=== PATIENT | female | born 1975 ===

== ENCOUNTER 2019-11-19 17:56 | Inpatient (IN) ==
[2019-11-19] MEDS ORDERED: Naloxone 0.4 MG/ML INJ IVP PRN (21:58)
[2019-11-19] MEDS ORDERED: Insulin LISPRO 300 UNITS/3 ML VIAL SQ PRN (21:59)
[2019-11-19] MEDS ORDERED: D5% in 0.45% NACL w KCl 20 MEQ/1,000 ML MLS IVC PRN (21:59)
[2019-11-19] MEDS ORDERED: D5% in 0.45% NACL 1,000 ML IVC PRN (21:59)
[2019-11-19] MEDS ORDERED: *HR* Dextrose 50 % in Water (Vial) 50 ML VIAL IVP PRN (21:59)
[2019-11-19] MEDS ORDERED: 0.45 % Sodium Chloride w/KCl 20 MEQ/1,000 ML MLS IVC SCH (22:00)
[2019-11-19] MEDS ORDERED: Insulin Human Regular 100 UNIT in 0.9 % Sodium Chloride 100 ML IVC SCH (22:00)
[2019-11-19] MEDS ORDERED: 0.9 % Sodium Chloride 1,000 ML IVC SCH (22:00)
[2019-11-19] MEDS ORDERED: Potassium Chloride Elixir 20 MEQ/15 ML UDC PO ONE (22:37)
[2019-11-19] MEDS ORDERED: Vancomycin 1,750 MG in 0.9 % Sodium Chloride 250 ML IVPB SCH (23:00)
[2019-11-19 23:04] LABS: Basophils % 0.2 %; Eosinophils % 0.2 %; Hematocrit 42.1 % (35.3-44.9); Hemoglobin 14.9 g/dL (11.5-15.4); Immature Granulocytes % 0.4 % (0-4); Lymphocytes # 0.8 K/mcL (0.6-4.6); Lymphocytes % 6.9 %; Mean Corpuscular HGB Conc 35.4 g/dL (31.6-35.5); Mean Corpuscular Hemoglobin 29.7 pg (28.0-33.3); Mean Corpuscular Volume 83.9 fL (83.0-100.0); Mean Platelet Volume 9.8 fL (9.4-12.4); Monocytes # 1.7 K/mcL (0.0-1.3); Monocytes % 13.9 %; Neutrophils # 9.6 K/mcL (1.6-8.9); Platelet Count 491 K/mcL (140-400); Red Blood Count 5.02 M/mcL (3.82-4.97); Segmented Neutrophils % 78.4 %; White Blood Count 12.2 K/mcL (4.3-11.1)
[2019-11-19 23:18] LABS: BUN/Creatinine Ratio 57 (6-26); Blood Urea Nitrogen 67 mg/dL (6-20); Calcium 8.3 mg/dL (8.6-10.3); Carbon Dioxide 12 mEq/L (23-29); Chloride 114 mEq/L (98-107); Glucose 196 mg/dL (70-105); Osmolality,Calculated 311 (280-300); Potassium 2.8 mEq/L (3.5-5.1); Sodium 138 mEq/L (136-145); eGFR For African Americans > 60 (> 60); eGFR For Non-African Americans 50 (> 60)
[2019-11-20] MEDS ORDERED: Vancomycin 1,750 MG/517.5 ML IV.SOLN IVPB ONE (00:01)
[2019-11-20 01:09] LABS: Basophils % 0.3 %; Eosinophils % 0.3 %; Hematocrit 41.7 % (35.3-44.9); Hemoglobin 14.5 g/dL (11.5-15.4); Immature Granulocytes % 0.3 % (0-4); Lymphocytes % 6.5 %; Mean Corpuscular HGB Conc 34.8 g/dL (31.6-35.5); Mean Corpuscular Hemoglobin 29.7 pg (28.0-33.3); Mean Corpuscular Volume 85.5 fL (83.0-100.0); Mean Platelet Volume 9.9 fL (9.4-12.4); Monocytes # 2.1 K/mcL (0.0-1.3); Monocytes % 13.9 %; Neutrophils # 11.9 K/mcL (1.6-8.9); Platelet Count 504 K/mcL (140-400); Red Blood Count 4.88 M/mcL (3.82-4.97); Red Cell Distribution Width 13.2 % (11.5-14.5); Segmented Neutrophils % 78.7 %; White Blood Count 15.1 K/mcL (4.3-11.1)
[2019-11-20] MEDS: Clindamycin 600 MG/50 ML 600 MG/50 ML IV.SOLN IVPB SCH ×2 (01:19→07:41)
[2019-11-20] MEDS: Cefepime HCl 2,000 MG in 0.9 % Sodium Chloride Mini Bag 100 ML IVPB SCH ×3 (01:59→15:56)
[2019-11-20] MEDS ORDERED: Potassium Chloride Elixir 20 MEQ/15 ML UDC PO ONE (03:31)
[2019-11-20] MEDS ORDERED: Pantoprazole 40 MG VIAL IVP ONE (04:46)
[2019-11-20] MEDS: *HR* Heparin 5,000 UNIT/ML VIAL SQ SCH ×2 (05:18→15:57)
[2019-11-20 06:11] LABS: INR 1.3; Prothrombin Time 15.3 Seconds (9.4-12.1)
[2019-11-20 06:25] LABS: BUN/Creatinine Ratio 59 (6-26); Blood Urea Nitrogen 52 mg/dL (6-20); Calcium 8.9 mg/dL (8.6-10.3); Carbon Dioxide 12 mEq/L (23-29); Chloride 116 mEq/L (98-107); Glucose 280 mg/dL (70-105); Osmolality,Calculated 314 (280-300); Potassium 2.8 mEq/L (3.5-5.1); Sodium 140 mEq/L (136-145); eGFR For African Americans > 60 (> 60); eGFR For Non-African Americans > 60 (> 60)
[2019-11-20] MEDS ORDERED: Naloxone 0.4 MG/ML INJ IVP PRN (09:31)
[2019-11-20] MEDS ORDERED: Acetaminophen 325 MG TABLET PO PRN (09:31)
[2019-11-20] MEDS: *HR* OxyCODONE Immed Rel 5 MG TABLET PO PRN (10:33)
[2019-11-20] MEDS ORDERED: Fluconazole 100 MG TABLET PO SCH (11:45)
[2019-11-20] MEDS: Nystatin POWDER 30 GM BOTTLE TP SCH ×3 (12:48→21:52)
[2019-11-20] MEDS: metroNIDAZOLE 500 MG TABLET PO SCH ×2 (12:49→21:50)
[2019-11-20] MEDS: Vancomycin 1,500 MG/265 ML IV.SOLN IVPB SCH (12:50)
[2019-11-20 13:30] LABS: BUN/Creatinine Ratio 49 (6-26); Blood Urea Nitrogen 37 mg/dL (6-20); Calcium 8.7 mg/dL (8.6-10.3); Carbon Dioxide 14 mEq/L (23-29); Chloride 115 mEq/L (98-107); Glucose 331 mg/dL (70-105); Osmolality,Calculated 310 (280-300); Potassium 2.9 mEq/L (3.5-5.1); Sodium 139 mEq/L (136-145); eGFR For African Americans > 60 (> 60); eGFR For Non-African Americans > 60 (> 60)
[2019-11-20] MEDS ORDERED: D5% in Water 1,000 ML IVC PRN (14:48)
[2019-11-20] MEDS ORDERED: Dextrose Gel 15 GM/37.5 ML TUBE PO PRN ×2 (14:48)
[2019-11-20] MEDS ORDERED: *HR* Dextrose 50 % in Water (Vial) 50 ML VIAL IVP PRN (14:48)
[2019-11-20] MEDS ORDERED: Insulin DETEMIR 100 UNIT/ML X5UNITS SQ ONE (14:49)
[2019-11-20] MEDS ORDERED: Gadolinium Contrast Agent (WT Based) IV PRN (14:57)
[2019-11-20] MEDS: Insulin LISPRO 300 UNITS/3 ML VIAL SQ SCH ×4 (15:55→22:07)
[2019-11-20 17:08] LABS: BUN/Creatinine Ratio 45 (6-26); Blood Urea Nitrogen 31 mg/dL (6-20); Calcium 8.3 mg/dL (8.6-10.3); Carbon Dioxide 13 mEq/L (23-29); Chloride 118 mEq/L (98-107); Glucose 293 mg/dL (70-105); Osmolality,Calculated 305 (280-300); Sodium 139 mEq/L (136-145); eGFR For African Americans > 60 (> 60); eGFR For Non-African Americans > 60 (> 60)
[2019-11-20 21:06] LABS: BUN/Creatinine Ratio 47 (6-26); Blood Urea Nitrogen 27 mg/dL (6-20); Calcium 8.4 mg/dL (8.6-10.3); Carbon Dioxide 15 mEq/L (23-29); Chloride 119 mEq/L (98-107); Glucose 78 mg/dL (70-105); Osmolality,Calculated 296 (280-300); Potassium 3.3 mEq/L (3.5-5.1); Sodium 141 mEq/L (136-145); eGFR For African Americans > 60 (> 60); eGFR For Non-African Americans > 60 (> 60)
[2019-11-20] MEDS: Famotidine 20 MG/2 ML VIAL IVP SCH (21:50)
[2019-11-20] MEDS ORDERED: Permethrin Cream Rinse 60 ML LIQUID TP ONE (23:21)
[2019-11-21] MEDS ORDERED: Vancomycin 1,250 MG/262.5 ML IV.SOLN IVPB SCH (00:01)
[2019-11-21] MEDS ORDERED: *HR* LORazepam 2 MG/ML VIAL IVP ONE (01:16)
[2019-11-21] MEDS: Vancomycin 1,500 MG/265 ML IV.SOLN IVPB SCH ×2 (01:20→13:03)
[2019-11-21] MEDS: Cefepime HCl 2,000 MG in 0.9 % Sodium Chloride Mini Bag 100 ML IVPB SCH ×3 (02:05→16:08)
[2019-11-21 02:28] LABS: Adenovirus Not Detected (Not Detect); Bordetella Pertussis Not Detected (Not Detect); Chlamydophila pneumoniae Not Detected (Not Detect); Coronavirus 229E Not Detected (Not Detect); Coronavirus HKU1 Not Detected (Not Detect); Coronavirus NL63 Not Detected (Not Detect); Coronavirus OC43 Not Detected (Not Detect); Human Metapneumovirus Not Detected (Not Detect); Human Rhinovirus/Enterovirus Not Detected (Not Detect); Influenza A Subtype 2009 H1 Not Detected (Not Detect); Influenza B Not Detected (Not Detect); Mycoplasma pneumoniae Not Detected (Not Detect); Parainfluenza Virus 1 Not Detected (Not Detect); Parainfluenza Virus 2 Not Detected (Not Detect); Parainfluenza Virus 3 Not Detected (Not Detect); Parainfluenza Virus 4 Not Detected (Not Detect); Respiratory Syncytial Virus Not Detected (Not Detect); SARS-CoV-2 Not Detected (Not Detect)
[2019-11-21 05:47] LABS: Hematocrit 35.7 % (35.3-44.9); Mean Corpuscular HGB Conc 35.3 g/dL (31.6-35.5); Mean Corpuscular Hemoglobin 29.6 pg (28.0-33.3); Mean Platelet Volume 10.1 fL (9.4-12.4); Platelet Count 473 K/mcL (140-400); Red Blood Count 4.25 M/mcL (3.82-4.97); Red Cell Distribution Width 13.3 % (11.5-14.5); White Blood Count 10.1 K/mcL (4.3-11.1)
[2019-11-21 05:48] LABS: Hemoglobin 12.6 g/dL (11.5-15.4)
[2019-11-21] MEDS: Famotidine 20 MG/2 ML VIAL IVP SCH ×2 (05:57→17:26)
[2019-11-21] MEDS: *HR* Heparin 5,000 UNIT/ML VIAL SQ SCH ×2 (05:57→17:25)
[2019-11-21] MEDS ORDERED: Lidocaine -MPF 2% 2 ML VIAL ONE ×2 (07:08→07:09)
[2019-11-21] MEDS ORDERED: *HR* Midazolam HCl 2 MG/2 ML VIAL ONE (07:09)
[2019-11-21] MEDS ORDERED: *HR* FentaNYL (PF) 100 MCG/2 ML VIAL ONE (07:09)
[2019-11-21] MEDS ORDERED: *HR* Propofol 200 MG/20 ML VIAL IVP ONE (07:09)
[2019-11-21] MEDS ORDERED: Ondansetron 4 MG/2 ML VIAL ONE (07:14)
[2019-11-21] MEDS: metroNIDAZOLE 500 MG TABLET PO SCH ×2 (08:55→22:45)
[2019-11-21] MEDS: Insulin DETEMIR 100 UNIT/ML X5UNITS SQ SCH (08:58)
[2019-11-21] MEDS: Nystatin POWDER 30 GM BOTTLE TP SCH ×3 (08:59→22:46)
[2019-11-21] MEDS: Insulin LISPRO 300 UNITS/3 ML VIAL SQ SCH ×7 (08:59→22:46)
[2019-11-21 10:31] LABS: BUN/Creatinine Ratio 35 (6-26); Blood Urea Nitrogen 22 mg/dL (6-20); Calcium 8.6 mg/dL (8.6-10.3); Carbon Dioxide 17 mEq/L (23-29); Chloride 119 mEq/L (98-107); Glucose 93 mg/dL (70-105); Osmolality,Calculated 301 (280-300); Potassium 3.2 mEq/L (3.5-5.1); Sodium 144 mEq/L (136-145); eGFR For African Americans > 60 (> 60); eGFR For Non-African Americans > 60 (> 60)
[2019-11-21] MEDS ORDERED: Fluconazole 200 MG/100 ML 200 MG/100 ML BAG IVPB SCH (13:00)
[2019-11-21] MEDS: *HR* OxyCODONE Immed Rel 5 MG TABLET PO PRN (23:06)
[2019-11-21] MEDS: Ondansetron 4 MG/2 ML VIAL IVP PRN (23:07)
[2019-11-22] MEDS: Cefepime HCl 2,000 MG in 0.9 % Sodium Chloride Mini Bag 100 ML IVPB SCH ×4 (00:30→23:59)
[2019-11-22 01:41] LABS: Hematocrit 40.8 % (35.3-44.9); Hemoglobin 13.9 g/dL (11.5-15.4); Mean Corpuscular HGB Conc 34.1 g/dL (31.6-35.5); Mean Corpuscular Hemoglobin 30.2 pg (28.0-33.3); Mean Corpuscular Volume 88.7 fL (83.0-100.0); Mean Platelet Volume 10.5 fL (9.4-12.4); Platelet Count 385 K/mcL (140-400)
[2019-11-22 01:55] LABS: BUN/Creatinine Ratio 28 (6-26); Blood Urea Nitrogen 15 mg/dL (6-20); Calcium 8.1 mg/dL (8.6-10.3); Carbon Dioxide 13 mEq/L (23-29); Chloride 116 mEq/L (98-107); Glucose 107 mg/dL (70-105); Osmolality,Calculated 285 (280-300); Potassium 3.4 mEq/L (3.5-5.1); Sodium 137 mEq/L (136-145); eGFR For African Americans > 60 (> 60); eGFR For Non-African Americans > 60 (> 60)
[2019-11-22] MEDS: Vancomycin 1,500 MG/265 ML IV.SOLN IVPB SCH ×2 (03:34→17:49)
[2019-11-22] MEDS: *HR* Heparin 5,000 UNIT/ML VIAL SQ SCH ×2 (05:37→16:42)
[2019-11-22] MEDS: *HR* OxyCODONE Immed Rel 5 MG TABLET PO PRN ×2 (05:37→15:15)
[2019-11-22] MEDS: Famotidine 20 MG/2 ML VIAL IVP SCH (05:37)
[2019-11-22 06:32] LABS: BUN/Creatinine Ratio 26 (6-26); Blood Urea Nitrogen 15 mg/dL (6-20); Calcium 8.4 mg/dL (8.6-10.3); Carbon Dioxide 17 mEq/L (23-29); Chloride 114 mEq/L (98-107); Glucose 109 mg/dL (70-105); Magnesium 1.9 mg/dL (1.6-2.6); Osmolality,Calculated 287 (280-300); Phosphorous 2.1 mg/dL (2.7-4.5); Potassium 3.3 mEq/L (3.5-5.1); Sodium 138 mEq/L (136-145); eGFR For African Americans > 60 (> 60); eGFR For Non-African Americans > 60 (> 60)
[2019-11-22] MEDS: Insulin DETEMIR 100 UNIT/ML X5UNITS SQ SCH (08:09)
[2019-11-22] MEDS: metroNIDAZOLE 500 MG TABLET PO SCH ×2 (08:10→21:08)
[2019-11-22] MEDS: Insulin LISPRO 300 UNITS/3 ML VIAL SQ SCH ×7 (08:23→21:00)
[2019-11-22] MEDS: Nystatin POWDER 30 GM BOTTLE TP SCH ×3 (08:28→21:09)
[2019-11-22] MEDS: Ondansetron 4 MG/2 ML VIAL IVP PRN (14:42)
[2019-11-22] MEDS ORDERED: *HR* LORazepam 2 MG/ML VIAL IVP ONE (18:15)
[2019-11-22] MEDS: risperiDONE 1 MG TABLET PO SCH (21:08)
[2019-11-23] MEDS: Vancomycin 1,500 MG/265 ML IV.SOLN IVPB SCH ×2 (02:35→14:15)
[2019-11-23] MEDS: *HR* OxyCODONE Immed Rel 5 MG TABLET PO PRN ×3 (04:29→16:49)
[2019-11-23] MEDS: *HR* Heparin 5,000 UNIT/ML VIAL SQ SCH ×2 (04:29→16:50)
[2019-11-23] MEDS: Nystatin POWDER 30 GM BOTTLE TP SCH ×3 (07:26→20:29)
[2019-11-23] MEDS: Insulin LISPRO 300 UNITS/3 ML VIAL SQ SCH ×7 (07:27→20:28)
[2019-11-23] MEDS: metroNIDAZOLE 500 MG TABLET PO SCH ×2 (07:27→20:28)
[2019-11-23] MEDS: Cefepime HCl 2,000 MG in 0.9 % Sodium Chloride Mini Bag 100 ML IVPB SCH ×3 (07:28→23:15)
[2019-11-23] MEDS: Insulin DETEMIR 100 UNIT/ML X5UNITS SQ SCH (10:45)
[2019-11-23 13:03] LABS: Hematocrit 38.9 % (35.3-44.9); Hemoglobin 13.7 g/dL (11.5-15.4); Mean Corpuscular HGB Conc 35.2 g/dL (31.6-35.5); Mean Corpuscular Hemoglobin 29.9 pg (28.0-33.3); Mean Corpuscular Volume 84.9 fL (83.0-100.0); Mean Platelet Volume 9.8 fL (9.4-12.4); Platelet Count 435 K/mcL (140-400); Red Blood Count 4.58 M/mcL (3.82-4.97); Red Cell Distribution Width 13.2 % (11.5-14.5); White Blood Count 8.9 K/mcL (4.3-11.1)
[2019-11-23 13:36] LABS: BUN/Creatinine Ratio 15 (6-26); Blood Urea Nitrogen 8 mg/dL (6-20); Calcium 8.2 mg/dL (8.6-10.3); Carbon Dioxide 20 mEq/L (23-29); Chloride 111 mEq/L (98-107); Glucose 163 mg/dL (70-105); Osmolality,Calculated 286 (280-300); Potassium 2.9 mEq/L (3.5-5.1); Sodium 137 mEq/L (136-145); eGFR For African Americans > 60 (> 60); eGFR For Non-African Americans > 60 (> 60)
[2019-11-23] MEDS: risperiDONE 1 MG TABLET PO SCH (20:28)
[2019-11-24] MEDS: *HR* OxyCODONE Immed Rel 5 MG TABLET PO PRN ×3 (00:07→21:54)
[2019-11-24] MEDS: Vancomycin 1,500 MG/265 ML IV.SOLN IVPB SCH ×2 (02:30→13:54)
[2019-11-24] MEDS: *HR* Heparin 5,000 UNIT/ML VIAL SQ SCH ×2 (05:44→17:31)
[2019-11-24] MEDS: Insulin LISPRO 300 UNITS/3 ML VIAL SQ SCH ×7 (08:13→21:08)
[2019-11-24] MEDS: Cefepime HCl 2,000 MG in 0.9 % Sodium Chloride Mini Bag 100 ML IVPB SCH ×3 (08:22→23:50)
[2019-11-24] MEDS: Insulin DETEMIR 100 UNIT/ML X5UNITS SQ SCH (08:22)
[2019-11-24] MEDS: Nystatin POWDER 30 GM BOTTLE TP SCH ×3 (08:23→19:59)
[2019-11-24] MEDS: metroNIDAZOLE 500 MG TABLET PO SCH ×2 (08:23→19:59)
[2019-11-24 11:02] LABS: BUN/Creatinine Ratio 13 (6-26); Blood Urea Nitrogen 6 mg/dL (6-20); Calcium 8.2 mg/dL (8.6-10.3); Carbon Dioxide 21 mEq/L (23-29); Chloride 111 mEq/L (98-107); Glucose 165 mg/dL (70-105); Osmolality,Calculated 289 (280-300); Sodium 139 mEq/L (136-145); eGFR For African Americans > 60 (> 60); eGFR For Non-African Americans > 60 (> 60)
[2019-11-24 13:35] LABS: Hematocrit 38.5 % (35.3-44.9); Hemoglobin 14.1 g/dL (11.5-15.4); Mean Corpuscular HGB Conc 36.6 g/dL (31.6-35.5); Mean Corpuscular Hemoglobin 31.1 pg (28.0-33.3); Platelet Count 402 K/mcL (140-400); Red Blood Count 4.53 M/mcL (3.82-4.97); Red Cell Distribution Width 13.2 % (11.5-14.5); White Blood Count 7.7 K/mcL (4.3-11.1)
[2019-11-24] MEDS: risperiDONE 1 MG TABLET PO SCH (19:59)
[2019-11-25] MEDS: Vancomycin 1,500 MG/265 ML IV.SOLN IVPB SCH (02:06)
[2019-11-25] MEDS: *HR* Heparin 5,000 UNIT/ML VIAL SQ SCH (05:49)
[2019-11-25 06:59] VITALS: BP 142/81
[2019-11-25] MEDS: metroNIDAZOLE 500 MG TABLET PO SCH (07:38)
[2019-11-25] MEDS: Insulin LISPRO 300 UNITS/3 ML VIAL SQ SCH ×2 (07:38)
[2019-11-25] MEDS: Cefepime HCl 2,000 MG in 0.9 % Sodium Chloride Mini Bag 100 ML IVPB SCH (07:39)
[2019-11-25] MEDS: Insulin DETEMIR 100 UNIT/ML X5UNITS SQ SCH (07:39)
[2019-11-25] MEDS: *HR* OxyCODONE Immed Rel 5 MG TABLET PO PRN (10:27)
[2019-11-25] MEDS: Ondansetron 4 MG/2 ML VIAL IVP PRN (10:48)
== END 2019-11-25 12:38 | disposition home or self-care (01) | DRG 420 ==
LOC: 2NNU → CDU → SUATTDRO 21:46 → 2ANU 11-20 21:30
PROVIDERS: ADMIT Internal Medicine; ATTEND Student in an Organized Health Care Education/Training Program

== ENCOUNTER 2020-10-03 17:23 | Inpatient (IN) ==
[2020-10-03 18:33] LABS: Basophils % 0.1 %; Hematocrit 37.2 % (35.3-44.9); Immature Granulocytes % 2.7 % (0-4); Lymphocytes # 0.7 K/mcL (0.6-4.6); Lymphocytes % 2.2 %; Mean Corpuscular HGB Conc 34.9 g/dL (31.6-35.5); Mean Corpuscular Hemoglobin 28.8 pg (28.0-33.3); Mean Corpuscular Volume 82.5 fL (83.0-100.0); Mean Platelet Volume 9.7 fL (9.4-12.4); Monocytes # 0.9 K/mcL (0.0-1.3); Neutrophils # 28.3 K/mcL (1.6-8.9); Platelet Count 606 K/mcL (140-400); Red Blood Count 4.51 M/mcL (3.82-4.97); Red Cell Distribution Width 14.5 % (11.5-14.5)
[2020-10-03 18:45] LABS: White Blood Count 30.8 K/mcL (4.3-11.1)
[2020-10-03 18:53] LABS: Platelet Estimate Increased (Normal)
[2020-10-03 18:54] LABS: Alanine Aminotransferase 19 Units/L (7-52); Albumin/Globulin Ratio 0.7 (1.1-2.2); Alkaline Phosphatase 91 Units/L (34-104); Aspartate Amino Transferase 15 Units/L (13-39); BUN/Creatinine Ratio 13 (6-26); Bilirubin,Total 0.4 mg/dL (0.3-1.0); Blood Urea Nitrogen 12 mg/dL (6-20); Calcium 9.1 mg/dL (8.6-10.3); Carbon Dioxide 19 mEq/L (23-29); Chloride 109 mEq/L (98-107); Globulin 4.3 g/dL (2.4-3.5); Glucose 142 mg/dL (70-105); Osmolality,Calculated 286 (280-300); Potassium 2.5 mEq/L (3.5-5.1); Sodium 137 mEq/L (136-145); Total Protein 7.3 g/dL (6.4-8.9); eGFR For African Americans > 60 (> 60); eGFR For Non-African Americans > 60 (> 60)
[2020-10-03] MEDS ORDERED: 0.9 % Sodium Chloride 1,000 ML IVC ONE (19:00)
[2020-10-03] MEDS ORDERED: Ondansetron 4 MG/2 ML VIAL IVP ONE (19:02)
[2020-10-03] MEDS ORDERED: Potassium Chloride 40 MEQ, Lidocaine 1% 2 ML in 0.9 % Sodium Chloride 500 ML IVPB ONE (19:03)
[2020-10-03] MEDS ORDERED: Isovue-370 500 ML BOTTLE IVP ONE (19:05)
[2020-10-03] MEDS ORDERED: Clindamycin 600 MG/50 ML 600 MG/50 ML IV.SOLN IVPB ONE (19:15)
[2020-10-03] MEDS ORDERED: cefTRIAXone 1,000 MG in Water for inj. (sterile) 10 ML IVP ONE (19:15)
[2020-10-03 21:27] LABS: Influenza A PCR Negative (Negative); Influenza B PCR Negative (Negative); Resp. Syncytial Virus PCR Negative (Negative)
[2020-10-03 21:31] LABS: SARS-CoV-2 by PCR (In House) Positive (Negative)
[2020-10-03] MEDS ORDERED: 0.9 % Sodium Chloride 1,000 ML ONE (21:43)
[2020-10-04] MEDS ORDERED: Naloxone 0.4 MG/ML INJ IVP PRN (02:21)
[2020-10-04] MEDS ORDERED: Ipratropium/Albuterol Neb 3 ML IH PRN (02:24)
[2020-10-04] MEDS ORDERED: Potassium Chloride 40 MEQ, Lidocaine 1% 2 ML in 0.9 % Sodium Chloride 500 ML IVPB ONE ×2 (02:26→05:20)
[2020-10-04] MEDS ORDERED: 0.9 % Sodium Chloride 1,000 ML IVC SCH (02:30)
[2020-10-04] MEDS ORDERED: Vancomycin 1,500 MG/265 ML IV.SOLN IVPB ONE (03:15)
[2020-10-04] MEDS ORDERED: D5% in Water 1,000 ML IVC PRN (03:53)
[2020-10-04] MEDS ORDERED: *HR* Dextrose 50 % in Water (Vial) 50 ML VIAL IVP PRN (03:53)
[2020-10-04] MEDS ORDERED: Dextrose Gel 15 GM/37.5 ML TUBE PO PRN ×2 (03:53)
[2020-10-04] MEDS: Acetaminophen 325 MG TABLET PO PRN (04:21)
[2020-10-04 04:28] LABS: Bilirubin,Urine Negative (Negative); Blood,Urine Negative (Negative); Clarity,Urine Clear (Clear); Color,Urine Light-Yellow (Yellow); Glucose,Urine (UA) Normal (Normal); Ketones,Urine Negative (Negative); Leukocyte Esterase,Urine Negative (Negative); Nitrite,Urine Negative (Negative); PH,Urine 6.5 pH Units (5.0-8.0); Protein,Urine 70 mg/dL (Neg-Trace); RBC,Urine 0-3 per hpf (0-3); Specific Gravity,Urine 1.024 (1.010-1.025); Urobilinogen,Urine Normal (Normal); WBC,Urine 0-3 per hpf (0-3)
[2020-10-04 04:45] LABS: Basophils % 0.2 %; Mean Platelet Volume 9.9 fL (9.4-12.4)
[2020-10-04 04:46] LABS: Basophils # 0.1 K/mcL (0.0-0.2); Hematocrit 30.5 % (35.3-44.9); Hemoglobin 10.7 g/dL (11.5-15.4); Immature Granulocytes % 1.5 % (0-4); Lymphocytes # 0.6 K/mcL (0.6-4.6); Lymphocytes % 1.8 %; Mean Corpuscular HGB Conc 35.1 g/dL (31.6-35.5); Mean Corpuscular Hemoglobin 29.1 pg (28.0-33.3); Mean Corpuscular Volume 82.9 fL (83.0-100.0); Monocytes # 0.7 K/mcL (0.0-1.3); Monocytes % 2.3 %; Neutrophils # 29.5 K/mcL (1.6-8.9); Platelet Count 459 K/mcL (140-400); Red Blood Count 3.68 M/mcL (3.82-4.97); Red Cell Distribution Width 14.3 % (11.5-14.5); Segmented Neutrophils % 94.2 %
[2020-10-04 04:57] LABS: INR 1.7; Prothrombin Time 19.9 Seconds (9.4-12.1)
[2020-10-04 05:03] LABS: White Blood Count 31.3 K/mcL (4.3-11.1)
[2020-10-04 05:08] LABS: BUN/Creatinine Ratio 11 (6-26); Blood Urea Nitrogen 9 mg/dL (6-20); C-Reactive Protein 288 mg/L (Less than 10); Calcium 7.9 mg/dL (8.6-10.3); Carbon Dioxide 12 mEq/L (23-29); Chloride 117 mEq/L (98-107); Glucose 132 mg/dL (70-105); Magnesium 1.7 mg/dL (1.6-2.6); Osmolality,Calculated 289 (280-300); Potassium 2.4 mEq/L (3.5-5.1); Sodium 139 mEq/L (136-145); eGFR For African Americans > 60 (> 60); eGFR For Non-African Americans > 60 (> 60)
[2020-10-04 05:13] LABS: Platelet Estimate Increased (Normal)
[2020-10-04 05:21] LABS: Thyroid Stimulating Hormone 0.328 mcIU/mL (0.340-5.600)
[2020-10-04] MEDS ORDERED: MetroNIDAZOLE 500 MG/100 ML 500 MG/100 ML BAG IVPB SCH (06:00)
[2020-10-04] MEDS ORDERED: Clindamycin 600 MG/50 ML 600 MG/50 ML IV.SOLN IVPB SCH (08:00)
[2020-10-04] MEDS: Insulin LISPRO 300 UNITS/3 ML VIAL SUBQ SCH ×4 (08:03→20:13)
[2020-10-04] MEDS: Ondansetron 4 MG/2 ML VIAL IVP PRN (08:04)
[2020-10-04] MEDS: Cefepime HCl 2,000 MG in Water for inj. (sterile) 10 ML IVP SCH ×3 (08:04→23:48)
[2020-10-04] MEDS: Ibuprofen 400 MG TABLET PO PRN (11:48)
[2020-10-04] MEDS: Sodium Bicarbonate 150 MEQ in D5% in Water 1,000 ML IVC SCH ×2 (12:06→20:14)
[2020-10-04] MEDS: metroNIDAZOLE 500 MG TABLET PO SCH ×2 (12:41→20:13)
[2020-10-04 13:12] LABS: BUN/Creatinine Ratio 12 (6-26); Blood Urea Nitrogen 11 mg/dL (6-20); Calcium 8.1 mg/dL (8.6-10.3); Carbon Dioxide 12 mEq/L (23-29); Chloride 119 mEq/L (98-107); Glucose 150 mg/dL (70-105); Osmolality,Calculated 292 (280-300); Potassium 2.9 mEq/L (3.5-5.1); Sodium 140 mEq/L (136-145); eGFR For African Americans > 60 (> 60); eGFR For Non-African Americans > 60 (> 60)
[2020-10-04] MEDS: Nystatin POWDER 30 GM BOTTLE TP SCH ×2 (15:38→20:13)
[2020-10-05 05:24] LABS: Hematocrit 29.9 % (35.3-44.9); Hemoglobin 10.3 g/dL (11.5-15.4); Lymphocytes # 0.8 K/mcL (0.6-4.6); Mean Corpuscular HGB Conc 34.4 g/dL (31.6-35.5); Mean Corpuscular Hemoglobin 27.9 pg (28.0-33.3); Mean Platelet Volume 10.2 fL (9.4-12.4); Platelet Count 423 K/mcL (140-400); Red Blood Count 3.69 M/mcL (3.82-4.97); Red Cell Distribution Width 14.4 % (11.5-14.5); White Blood Count 19.8 K/mcL (4.3-11.1)
[2020-10-05 05:42] LABS: BUN/Creatinine Ratio 18 (6-26); Blood Urea Nitrogen 15 mg/dL (6-20); Calcium 7.9 mg/dL (8.6-10.3); Carbon Dioxide 17 mEq/L (23-29); Chloride 115 mEq/L (98-107); Glucose 177 mg/dL (70-105); Osmolality,Calculated 293 (280-300); Potassium 3.2 mEq/L (3.5-5.1); Sodium 139 mEq/L (136-145); eGFR For African Americans > 60 (> 60); eGFR For Non-African Americans > 60 (> 60)
[2020-10-05] MEDS: Ibuprofen 400 MG TABLET PO PRN (06:00)
[2020-10-05 06:20] LABS: Monocytes # 0.4 K/mcL (0.0-1.3); Neutrophils # 18.6 K/mcL (1.6-8.9); Smudge Cells Present (Not Present)
[2020-10-05] MEDS: Cefepime HCl 2,000 MG in Water for inj. (sterile) 10 ML IVP SCH ×2 (07:38→17:54)
[2020-10-05] MEDS: Sodium Bicarbonate 150 MEQ in D5% in Water 1,000 ML IVC SCH ×2 (07:38→18:39)
[2020-10-05] MEDS: Insulin LISPRO 300 UNITS/3 ML VIAL SUBQ SCH ×4 (07:42→22:53)
[2020-10-05] MEDS: metroNIDAZOLE 500 MG TABLET PO SCH ×2 (08:32→22:55)
[2020-10-05] MEDS: Nystatin POWDER 30 GM BOTTLE TP SCH ×2 (10:18→22:53)
[2020-10-05] MEDS: Acetaminophen 325 MG TABLET PO PRN (14:11)
[2020-10-05] MEDS: Vancomycin 1,500 MG/265 ML IV.SOLN IVPB SCH (17:54)
[2020-10-05] MEDS: Ondansetron 4 MG/2 ML VIAL IVP PRN (23:30)
[2020-10-06] MEDS: Cefepime HCl 2,000 MG in Water for inj. (sterile) 10 ML IVP SCH ×2 (00:12→08:38)
[2020-10-06] MEDS: Ondansetron 4 MG/2 ML VIAL IVP PRN (08:39)
[2020-10-06] MEDS: metroNIDAZOLE 500 MG TABLET PO SCH (08:44)
[2020-10-06] MEDS: Insulin LISPRO 300 UNITS/3 ML VIAL SUBQ SCH ×3 (08:44→17:08)
[2020-10-06 12:09] LABS: Basophils % 0.3 %; Hematocrit 32.9 % (35.3-44.9); Hemoglobin 11.5 g/dL (11.5-15.4); Immature Granulocytes % 0.9 % (0-4); Lymphocytes # 0.7 K/mcL (0.6-4.6); Lymphocytes % 6.3 %; Mean Corpuscular Hemoglobin 28.1 pg (28.0-33.3); Mean Corpuscular Volume 80.4 fL (83.0-100.0); Mean Platelet Volume 10.1 fL (9.4-12.4); Monocytes # 0.6 K/mcL (0.0-1.3); Monocytes % 5.5 %; Neutrophils # 9.6 K/mcL (1.6-8.9); Platelet Count 465 K/mcL (140-400); Red Blood Count 4.09 M/mcL (3.82-4.97); Red Cell Distribution Width 14.1 % (11.5-14.5); White Blood Count 11.1 K/mcL (4.3-11.1)
[2020-10-06] MEDS: Haloperidol Lactate 5 MG/ML VIAL IM PRN (12:22)
[2020-10-06 12:28] LABS: BUN/Creatinine Ratio 17 (6-26); Blood Urea Nitrogen 12 mg/dL (6-20); Carbon Dioxide 23 mEq/L (23-29); Chloride 110 mEq/L (98-107); Glucose 128 mg/dL (70-105); Osmolality,Calculated 295 (280-300); Potassium 2.9 mEq/L (3.5-5.1); Sodium 142 mEq/L (136-145); eGFR For African Americans > 60 (> 60); eGFR For Non-African Americans > 60 (> 60)
[2020-10-06] MEDS: Nystatin POWDER 30 GM BOTTLE TP SCH (12:45)
[2020-10-06] MEDS ORDERED: Potassium Chloride Elixir 20 MEQ/15 ML UDC PO ONE (13:52)
[2020-10-06] MEDS: QUEtiapine Fumarate 25 MG TABLET PO SCH (15:07)
[2020-10-07] MEDS: Nystatin POWDER 30 GM BOTTLE TP SCH ×3 (00:01→23:27)
[2020-10-07] MEDS: QUEtiapine Fumarate 25 MG TABLET PO SCH ×2 (00:01→12:18)
[2020-10-07] MEDS: Insulin LISPRO 300 UNITS/3 ML VIAL SUBQ SCH ×5 (00:01→23:27)
[2020-10-07 11:10] LABS: BUN/Creatinine Ratio 18 (6-26); Blood Urea Nitrogen 11 mg/dL (6-20); Calcium 7.8 mg/dL (8.6-10.3); Carbon Dioxide 25 mEq/L (23-29); Chloride 107 mEq/L (98-107); Glucose 103 mg/dL (70-105); Magnesium 1.8 mg/dL (1.6-2.6); Osmolality,Calculated 286 (280-300); Phosphorous 3.4 mg/dL (2.7-4.5); Potassium 2.8 mEq/L (3.5-5.1); Sodium 138 mEq/L (136-145); eGFR For African Americans > 60 (> 60); eGFR For Non-African Americans > 60 (> 60)
[2020-10-07] MEDS ORDERED: Potassium Chloride 20 MEQ, Lidocaine 1% 2 ML in 0.9 % Sodium Chloride 250 ML IVPB ONE (12:08)
[2020-10-07] MEDS: Ertapenem 1,000 MG in 0.9 % Sodium Chloride Mini Bag 100 ML IVPB SCH ×2 (12:13→12:14)
[2020-10-07] MEDS: Dexamethasone Sodium Phos/PF 10 MG/ML VIAL IVP SCH ×2 (12:13→12:19)
[2020-10-07] MEDS: Vancomycin 1,500 MG/265 ML IV.SOLN IVPB SCH (12:14)
[2020-10-07] MEDS: Ibuprofen 400 MG TABLET PO PRN (15:13)
[2020-10-07] MEDS ORDERED: Haloperidol Lactate 5 MG/ML VIAL IM ONE (16:54)
[2020-10-07 17:01] LABS: ABG Base Excess -2 mEq/L (-2 to 3); ABG HCO3 22 mEq/L (21-27); ABG Oxygen Saturation 92 % (95-98); ABG PCO2 34 mmHg (35-45); ABG PH 7.42 pH Units (7.32-7.45); ABG PO2 60 mmHg (85-104); ABG TCO2 23 mEq/L (20-26)
[2020-10-07] MEDS: *HR* Enoxaparin 40 MG/0.4 ML SYRINGE SQ SCH (20:32)
[2020-10-08 00:33] LABS: Basophils % 0.3 %; Hematocrit 33.5 % (35.3-44.9); Hemoglobin 11.2 g/dL (11.5-15.4); Immature Granulocytes % 1.1 % (0-4); Lymphocytes # 0.9 K/mcL (0.6-4.6); Lymphocytes % 8.8 %; Mean Corpuscular HGB Conc 33.4 g/dL (31.6-35.5); Mean Corpuscular Hemoglobin 27.9 pg (28.0-33.3); Mean Corpuscular Volume 83.3 fL (83.0-100.0); Mean Platelet Volume 10.1 fL (9.4-12.4); Monocytes # 0.3 K/mcL (0.0-1.3); Monocytes % 3.2 %; Neutrophils # 8.8 K/mcL (1.6-8.9); Platelet Count 295 K/mcL (140-400); Red Blood Count 4.02 M/mcL (3.82-4.97); Red Cell Distribution Width 14.6 % (11.5-14.5); Segmented Neutrophils % 86.6 %; White Blood Count 10.1 K/mcL (4.3-11.1)
[2020-10-08 00:50] LABS: Alanine Aminotransferase 9 Units/L (7-52); Albumin 2.1 g/dL (3.5-5.7); Albumin/Globulin Ratio 0.6 (1.1-2.2); Alkaline Phosphatase 64 Units/L (34-104); Aspartate Amino Transferase 18 Units/L (13-39); BUN/Creatinine Ratio 20 (6-26); Bilirubin,Indirect 0.3 mg/dL (0.0-1.0); Bilirubin,Total 0.3 mg/dL (0.3-1.0); Blood Urea Nitrogen 11 mg/dL (6-20); Calcium 7.6 mg/dL (8.6-10.3); Carbon Dioxide 20 mEq/L (23-29); Chloride 111 mEq/L (98-107); Globulin 3.8 g/dL (2.4-3.5); Glucose 134 mg/dL (70-105); Lactate Dehydrogenase 363 Units/L (140-271); Osmolality,Calculated 289 (280-300); Phosphorous 4.1 mg/dL (2.7-4.5); Potassium 3.4 mEq/L (3.5-5.1); Sodium 139 mEq/L (136-145); Total Protein 5.9 g/dL (6.4-8.9); eGFR For African Americans > 60 (> 60); eGFR For Non-African Americans > 60 (> 60)
[2020-10-08 00:53] LABS: Fibrinogen 450 mg/dL (169-393)
[2020-10-08 01:07] LABS: Ferritin 355 ng/mL (10-120)
[2020-10-08 01:32] LABS: Platelet Estimate Normal (Normal); Reactive Lymphocytes Present (Not Present)
[2020-10-08] MEDS ORDERED: Acetaminophen IV 500 MG/50 ML BAG IVPB ONE (01:52)
[2020-10-08 02:44] LABS: D-Dimer 14859 ng/mLFEU (0-500)
[2020-10-08] MEDS: *HR* Enoxaparin 40 MG/0.4 ML SYRINGE SQ SCH (06:37)
[2020-10-08] MEDS: Haloperidol Lactate 5 MG/ML VIAL IM PRN (07:24)
[2020-10-08] MEDS: Insulin LISPRO 300 UNITS/3 ML VIAL SUBQ SCH ×3 (07:44→18:24)
[2020-10-08] MEDS ORDERED: Remdesivir 200 MG in 0.9 % Sodium Chloride 100 ML IVPB ONE (08:00)
[2020-10-08] MEDS: Ertapenem 1,000 MG in 0.9 % Sodium Chloride Mini Bag 100 ML IVPB SCH (08:41)
[2020-10-08] MEDS: BuPROPion XL (24 HR) 150 MG TABLET PO SCH ×2 (08:41→17:11)
[2020-10-08] MEDS: OLANZapine 10 MG TAB.RAPDIS PO SCH ×2 (08:41→17:12)
[2020-10-08] MEDS: Nystatin POWDER 30 GM BOTTLE TP SCH ×2 (08:53→22:55)
[2020-10-08] MEDS: Dexmedetomidine HCl 400 MCG/100 ML MLS IVC SCH (08:58)
[2020-10-08] MEDS ORDERED: Haloperidol Lactate 5 MG/ML VIAL IVP ONE (13:10)
[2020-10-08] MEDS ORDERED: Haloperidol Lactate 5 MG/ML VIAL IVP PRN (13:11)
[2020-10-08] MEDS ORDERED: Isovue-370 500 ML BOTTLE IVP ONE (15:13)
[2020-10-08] MEDS: Ibuprofen 400 MG TABLET PO PRN (17:11)
[2020-10-08] MEDS: Furosemide 20 MG/2 ML VIAL IVP SCH (22:55)
[2020-10-09] MEDS: Insulin LISPRO 300 UNITS/3 ML VIAL SUBQ SCH ×5 (00:05→19:51)
[2020-10-09] MEDS: Ibuprofen 400 MG TABLET PO PRN (00:05)
[2020-10-09 06:07] LABS: Basophils % 0.2 %; Hematocrit 33.2 % (35.3-44.9); Immature Granulocytes % 1.5 % (0-4); Lymphocytes # 1.5 K/mcL (0.6-4.6); Mean Corpuscular HGB Conc 33.1 g/dL (31.6-35.5); Mean Corpuscular Hemoglobin 27.4 pg (28.0-33.3); Mean Corpuscular Volume 82.8 fL (83.0-100.0); Mean Platelet Volume 10.8 fL (9.4-12.4); Monocytes # 0.9 K/mcL (0.0-1.3); Monocytes % 4.6 %; Neutrophils # 15.9 K/mcL (1.6-8.9); Platelet Count 248 K/mcL (140-400); Red Blood Count 4.01 M/mcL (3.82-4.97); Red Cell Distribution Width 14.9 % (11.5-14.5); Segmented Neutrophils % 85.7 %
[2020-10-09] MEDS: *HR* Enoxaparin 40 MG/0.4 ML SYRINGE SQ SCH (06:16)
[2020-10-09 06:21] LABS: Alanine Aminotransferase 11 Units/L (7-52); Albumin 2.3 g/dL (3.5-5.7); Albumin/Globulin Ratio 0.6 (1.1-2.2); Alkaline Phosphatase 77 Units/L (34-104); Aspartate Amino Transferase 17 Units/L (13-39); BUN/Creatinine Ratio 27 (6-26); Bilirubin,Direct 0.1 mg/dL (0.0-0.2); Bilirubin,Indirect 0.2 mg/dL (0.0-1.0); Bilirubin,Total 0.3 mg/dL (0.3-1.0); Blood Urea Nitrogen 19 mg/dL (6-20); Carbon Dioxide 21 mEq/L (23-29); Chloride 109 mEq/L (98-107); Globulin 3.9 g/dL (2.4-3.5); Glucose 147 mg/dL (70-105); Osmolality,Calculated 295 (280-300); Phosphorous 3.4 mg/dL (2.7-4.5); Potassium 3.2 mEq/L (3.5-5.1); Sodium 140 mEq/L (136-145); Total Protein 6.2 g/dL (6.4-8.9); eGFR For African Americans > 60 (> 60); eGFR For Non-African Americans > 60 (> 60)
[2020-10-09 06:24] LABS: White Blood Count 18.5 K/mcL (4.3-11.1)
[2020-10-09 06:58] LABS: Platelet Estimate Normal (Normal); Toxic Granulation Present (Not Present)
[2020-10-09] MEDS: Furosemide 20 MG/2 ML VIAL IVP SCH (07:27)
[2020-10-09] MEDS: Remdesivir 100 MG in 0.9 % Sodium Chloride 100 ML IVPB SCH (07:29)
[2020-10-09] MEDS: BuPROPion XL (24 HR) 150 MG TABLET PO SCH (07:33)
[2020-10-09] MEDS: Ertapenem 1,000 MG in 0.9 % Sodium Chloride Mini Bag 100 ML IVPB SCH (08:50)
[2020-10-09] MEDS ORDERED: Potassium Chloride 40 MEQ, Lidocaine 1% 2 ML in 0.9 % Sodium Chloride 500 ML IVPB ONE (09:00)
[2020-10-09] MEDS: Nystatin POWDER 30 GM BOTTLE TP SCH ×2 (09:05→19:52)
[2020-10-09] MEDS: OLANZapine 10 MG TAB.RAPDIS PO SCH (10:12)
[2020-10-09 10:20] LABS: Calcium 7.8 mg/dL (8.6-10.3)
[2020-10-09] MEDS: *HR* Buprenorphine HCl 8 MG TAB.SUBL SL SCH (11:04)
[2020-10-09] MEDS ORDERED: Pantoprazole 40 MG VIAL IVP ONE (14:23)
[2020-10-09] MEDS ORDERED: Acetaminophen IV 500 MG/50 ML BAG IVPB ONE (14:45)
[2020-10-09] MEDS: Acetaminophen 325 MG TABLET PO PRN (19:51)
[2020-10-10] MEDS: *HR* Enoxaparin 40 MG/0.4 ML SYRINGE SQ SCH (05:43)
[2020-10-10] MEDS: Acetaminophen 325 MG TABLET PO PRN ×2 (05:44→18:06)
[2020-10-10 07:06] LABS: Albumin 2.2 g/dL (3.5-5.7); Albumin/Globulin Ratio 0.6 (1.1-2.2); Bilirubin,Direct 0.1 mg/dL (0.0-0.2); Bilirubin,Indirect 0.3 mg/dL (0.0-1.0); Bilirubin,Total 0.4 mg/dL (0.3-1.0); Globulin 3.9 g/dL (2.4-3.5); Total Protein 6.1 g/dL (6.4-8.9)
[2020-10-10 07:09] LABS: BUN/Creatinine Ratio 27 (6-26); Blood Urea Nitrogen 16 mg/dL (6-20); Calcium 7.8 mg/dL (8.6-10.3); Carbon Dioxide 20 mEq/L (23-29); Chloride 107 mEq/L (98-107); Glucose 255 mg/dL (70-105); Osmolality,Calculated 288 (280-300); Phosphorous 2.8 mg/dL (2.7-4.5); Potassium 3.9 mEq/L (3.5-5.1); Sodium 134 mEq/L (136-145); eGFR For African Americans > 60 (> 60); eGFR For Non-African Americans > 60 (> 60)
[2020-10-10] MEDS ORDERED: *HR* LORazepam 2 MG/ML VIAL IVP PRN (08:03)
[2020-10-10] MEDS: Furosemide 20 MG/2 ML VIAL IVP SCH (09:02)
[2020-10-10] MEDS: Ertapenem 1,000 MG in 0.9 % Sodium Chloride Mini Bag 100 ML IVPB SCH (09:05)
[2020-10-10] MEDS: Remdesivir 100 MG in 0.9 % Sodium Chloride 100 ML IVPB SCH (09:06)
[2020-10-10] MEDS: OLANZapine 10 MG TAB.RAPDIS PO SCH (09:07)
[2020-10-10] MEDS: BuPROPion XL (24 HR) 150 MG TABLET PO SCH (09:07)
[2020-10-10] MEDS: Nystatin POWDER 30 GM BOTTLE TP SCH ×2 (09:07→20:56)
[2020-10-10] MEDS: Insulin LISPRO 300 UNITS/3 ML VIAL SUBQ SCH ×4 (09:26→20:43)
[2020-10-10] MEDS: *HR* Buprenorphine HCl 8 MG TAB.SUBL SL SCH (10:11)
[2020-10-10 10:53] LABS: Hemoglobin 11.9 g/dL (11.5-15.4); Mean Corpuscular HGB Conc 33.1 g/dL (31.6-35.5); Mean Corpuscular Hemoglobin 27.7 pg (28.0-33.3); Mean Corpuscular Volume 83.7 fL (83.0-100.0); Mean Platelet Volume 10.7 fL (9.4-12.4); Platelet Count 178 K/mcL (140-400); Red Cell Distribution Width 14.9 % (11.5-14.5); White Blood Count 18.9 K/mcL (4.3-11.1)
[2020-10-10 12:00] LABS: Monocytes # 0.4 K/mcL (0.0-1.3); Neutrophils # 17.2 K/mcL (1.6-8.9)
[2020-10-10 12:01] LABS: Platelet Estimate Normal (Normal); Reactive Lymphocytes Present (Not Present); Toxic Granulation Present (Not Present)
[2020-10-10] MEDS ORDERED: *HR* Heparin 5,000 UNIT/ML VIAL IVP PRN (17:23)
[2020-10-10] MEDS ORDERED: *HR* Heparin 5,000 UNIT/ML VIAL IVP ONE (17:23)
[2020-10-10] MEDS: Ondansetron 4 MG/2 ML VIAL IVP PRN (18:06)
[2020-10-10 18:30] LABS: Hematocrit 31.8 % (35.3-44.9); Hemoglobin 10.4 g/dL (11.5-15.4); Mean Corpuscular HGB Conc 32.7 g/dL (31.6-35.5); Mean Corpuscular Hemoglobin 27.5 pg (28.0-33.3); Mean Corpuscular Volume 84.1 fL (83.0-100.0); Mean Platelet Volume 11.2 fL (9.4-12.4); Platelet Count 155 K/mcL (140-400); Red Blood Count 3.78 M/mcL (3.82-4.97); Red Cell Distribution Width 14.8 % (11.5-14.5); White Blood Count 16.8 K/mcL (4.3-11.1)
[2020-10-10] MEDS: Heparin 25,000UNIT/250ML 1/2NS 25,000 UNIT/250 ML IV.SOLN IVC SCH (18:36)
[2020-10-10 19:02] LABS: INR 1.7; Prothrombin Time 19.9 Seconds (9.4-12.1)
[2020-10-10 19:05] LABS: Heparin anti-factor XA UFH 0.05 IU/mL (0.30-0.70)
[2020-10-10] MEDS: Insulin DETEMIR 100 UNIT/ML X5UNITS SUBQ SCH (20:43)
[2020-10-11 00:56] LABS: Basophils % 0.2 %; Hematocrit 31.3 % (35.3-44.9); Hemoglobin 10.2 g/dL (11.5-15.4); Immature Granulocytes % 1.4 % (0-4); Mean Corpuscular HGB Conc 32.6 g/dL (31.6-35.5); Mean Corpuscular Hemoglobin 27.3 pg (28.0-33.3); Mean Corpuscular Volume 83.7 fL (83.0-100.0); Mean Platelet Volume 11.3 fL (9.4-12.4); Monocytes # 0.6 K/mcL (0.0-1.3); Monocytes % 3.9 %; Platelet Count 173 K/mcL (140-400); Red Blood Count 3.74 M/mcL (3.82-4.97); Red Cell Distribution Width 14.7 % (11.5-14.5); Segmented Neutrophils % 88.5 %; White Blood Count 16.1 K/mcL (4.3-11.1)
[2020-10-11 00:58] LABS: Neutrophils # 14.3 K/mcL (1.6-8.9)
[2020-10-11 00:59] LABS: Platelet Estimate Normal (Normal); Reactive Lymphocytes Present (Not Present)
[2020-10-11 01:15] LABS: Albumin 2.1 g/dL (3.5-5.7); Albumin/Globulin Ratio 0.5 (1.1-2.2); Bilirubin,Direct 0.1 mg/dL (0.0-0.2); Bilirubin,Indirect 0.2 mg/dL (0.0-1.0); Bilirubin,Total 0.3 mg/dL (0.3-1.0); Globulin 4.1 g/dL (2.4-3.5); Total Protein 6.2 g/dL (6.4-8.9)
[2020-10-11 01:16] LABS: BUN/Creatinine Ratio 25 (6-26); Blood Urea Nitrogen 14 mg/dL (6-20); Calcium 7.7 mg/dL (8.6-10.3); Carbon Dioxide 22 mEq/L (23-29); Chloride 109 mEq/L (98-107); Glucose 199 mg/dL (70-105); Magnesium 1.8 mg/dL (1.6-2.6); Osmolality,Calculated 288 (280-300); Phosphorous 3.3 mg/dL (2.7-4.5); Potassium 3.6 mEq/L (3.5-5.1); Sodium 136 mEq/L (136-145); eGFR For African Americans > 60 (> 60); eGFR For Non-African Americans > 60 (> 60)
[2020-10-11] MEDS: Dexmedetomidine HCl 400 MCG/100 ML MLS IVC SCH ×2 (07:25→07:26)
[2020-10-11] MEDS: Ertapenem 1,000 MG in 0.9 % Sodium Chloride Mini Bag 100 ML IVPB SCH (08:04)
[2020-10-11] MEDS: *HR* Buprenorphine HCl 8 MG TAB.SUBL SL SCH (08:05)
[2020-10-11] MEDS: OLANZapine 10 MG TAB.RAPDIS PO SCH (08:05)
[2020-10-11] MEDS: Nicotine 14 MG PATCH.TD24 TD SCH (08:06)
[2020-10-11] MEDS: BuPROPion XL (24 HR) 150 MG TABLET PO SCH (08:06)
[2020-10-11] MEDS: Nystatin POWDER 30 GM BOTTLE TP SCH ×2 (08:07→20:36)
[2020-10-11] MEDS: Insulin LISPRO 300 UNITS/3 ML VIAL SUBQ SCH ×4 (08:14→20:35)
[2020-10-11] MEDS: Remdesivir 100 MG in 0.9 % Sodium Chloride 100 ML IVPB SCH (08:14)
[2020-10-11] MEDS: Insulin DETEMIR 100 UNIT/ML X5UNITS SUBQ SCH ×2 (08:15→20:47)
[2020-10-11] MEDS: Furosemide 20 MG/2 ML VIAL IVP SCH (08:16)
[2020-10-11 10:01] LABS: Estimated Average Glucose 157 mg/dl; Hemoglobin A1C 7.1 %
[2020-10-11] MEDS: *HR* Heparin 5,000 UNIT/ML VIAL IVP PRN (14:13)
[2020-10-11] MEDS ORDERED: Chloraseptic Spray 177 ML BOTTLE MM PRN (16:41)
[2020-10-11] MEDS: Heparin 25,000UNIT/250ML 1/2NS 25,000 UNIT/250 ML IV.SOLN IVC SCH (17:05)
[2020-10-11] MEDS: Acetaminophen 325 MG TABLET PO PRN (20:26)
[2020-10-11] MEDS: Ondansetron 4 MG/2 ML VIAL IVP PRN (20:47)
[2020-10-11] MEDS ORDERED: *HR* OxyCODONE/APAP 5/325 TABLET PO ONE (22:57)
[2020-10-12 05:49] LABS: D-Dimer 7187 ng/mLFEU (0-500); Fibrinogen 182 mg/dL (169-393)
[2020-10-12 06:03] LABS: Albumin 2.2 g/dL (3.5-5.7); Albumin/Globulin Ratio 0.6 (1.1-2.2); Bilirubin,Direct 0.1 mg/dL (0.0-0.2); Bilirubin,Indirect 0.3 mg/dL (0.0-1.0); Bilirubin,Total 0.4 mg/dL (0.3-1.0); Globulin 3.9 g/dL (2.4-3.5); Total Protein 6.1 g/dL (6.4-8.9)
[2020-10-12 06:07] LABS: Alanine Aminotransferase 10 Units/L (7-52); Albumin 2.2 g/dL (3.5-5.7); Albumin/Globulin Ratio 0.6 (1.1-2.2); Alkaline Phosphatase 82 Units/L (34-104); Aspartate Amino Transferase 11 Units/L (13-39); BUN/Creatinine Ratio 31 (6-26); Bilirubin,Total 0.4 mg/dL (0.3-1.0); Blood Urea Nitrogen 17 mg/dL (6-20); Calcium 7.9 mg/dL (8.6-10.3); Carbon Dioxide 23 mEq/L (23-29); Chloride 109 mEq/L (98-107); Globulin 3.9 g/dL (2.4-3.5); Glucose 207 mg/dL (70-105); Lactate Dehydrogenase 391 Units/L (140-271); Magnesium 1.9 mg/dL (1.6-2.6); Osmolality,Calculated 294 (280-300); Phosphorous 3.4 mg/dL (2.7-4.5); Potassium 3.5 mEq/L (3.5-5.1); Sodium 138 mEq/L (136-145); Total Protein 6.1 g/dL (6.4-8.9); eGFR For African Americans > 60 (> 60); eGFR For Non-African Americans > 60 (> 60)
[2020-10-12 06:17] LABS: Ferritin 401 ng/mL (10-120)
[2020-10-12] MEDS: Insulin LISPRO 300 UNITS/3 ML VIAL SUBQ SCH ×4 (08:44→21:59)
[2020-10-12] MEDS: Ertapenem 1,000 MG in 0.9 % Sodium Chloride Mini Bag 100 ML IVPB SCH (08:49)
[2020-10-12] MEDS: BuPROPion XL (24 HR) 150 MG TABLET PO SCH (08:50)
[2020-10-12] MEDS: OLANZapine 10 MG TAB.RAPDIS PO SCH (08:50)
[2020-10-12] MEDS: Nicotine 14 MG PATCH.TD24 TD SCH (08:50)
[2020-10-12] MEDS: Furosemide 20 MG/2 ML VIAL IVP SCH (08:51)
[2020-10-12] MEDS: Nystatin POWDER 30 GM BOTTLE TP SCH ×2 (08:52→22:00)
[2020-10-12] MEDS: Remdesivir 100 MG in 0.9 % Sodium Chloride 100 ML IVPB SCH (08:53)
[2020-10-12] MEDS: Insulin DETEMIR 100 UNIT/ML X5UNITS SUBQ SCH ×2 (09:36→21:59)
[2020-10-12] MEDS: *HR* Buprenorphine HCl 8 MG TAB.SUBL SL SCH (09:36)
[2020-10-12] MEDS: Heparin 25,000UNIT/250ML 1/2NS 25,000 UNIT/250 ML IV.SOLN IVC SCH (14:15)
[2020-10-13] MEDS: Heparin 25,000UNIT/250ML 1/2NS 25,000 UNIT/250 ML IV.SOLN IVC SCH (09:38)
[2020-10-13] MEDS: Insulin LISPRO 300 UNITS/3 ML VIAL SUBQ SCH ×4 (09:39→21:06)
[2020-10-13] MEDS: Ertapenem 1,000 MG in 0.9 % Sodium Chloride Mini Bag 100 ML IVPB SCH (09:40)
[2020-10-13] MEDS: Nystatin POWDER 30 GM BOTTLE TP SCH ×2 (09:41→21:06)
[2020-10-13] MEDS: BuPROPion XL (24 HR) 150 MG TABLET PO SCH (09:41)
[2020-10-13] MEDS: *HR* Buprenorphine HCl 8 MG TAB.SUBL SL SCH (09:41)
[2020-10-13] MEDS: Insulin DETEMIR 100 UNIT/ML X5UNITS SUBQ SCH (09:41)
[2020-10-13] MEDS: OLANZapine 10 MG TAB.RAPDIS PO SCH (09:41)
[2020-10-13] MEDS: Furosemide 20 MG/2 ML VIAL IVP SCH (09:41)
[2020-10-13] MEDS: Nicotine 14 MG PATCH.TD24 TD SCH (09:46)
[2020-10-13 10:24] LABS: Basophils % 0.2 %; Hematocrit 32.3 % (35.3-44.9); Hemoglobin 10.6 g/dL (11.5-15.4); Immature Granulocytes % 1.7 % (0-4); Lymphocytes # 0.6 K/mcL (0.6-4.6); Lymphocytes % 5.9 %; Mean Corpuscular HGB Conc 32.8 g/dL (31.6-35.5); Mean Corpuscular Hemoglobin 28.5 pg (28.0-33.3); Mean Corpuscular Volume 86.8 fL (83.0-100.0); Mean Platelet Volume 11.2 fL (9.4-12.4); Monocytes # 0.6 K/mcL (0.0-1.3); Monocytes % 5.4 %; Neutrophils # 9.1 K/mcL (1.6-8.9); Platelet Count 296 K/mcL (140-400); Red Blood Count 3.72 M/mcL (3.82-4.97); Red Cell Distribution Width 14.9 % (11.5-14.5); Segmented Neutrophils % 86.8 %; White Blood Count 10.4 K/mcL (4.3-11.1)
[2020-10-13 10:28] LABS: Platelet Estimate Normal (Normal)
[2020-10-13 10:33] LABS: Alanine Aminotransferase 11 Units/L (7-52); Albumin 2.4 g/dL (3.5-5.7); Albumin/Globulin Ratio 0.6 (1.1-2.2); Alkaline Phosphatase 94 Units/L (34-104); Aspartate Amino Transferase 9 Units/L (13-39); BUN/Creatinine Ratio 30 (6-26); Bilirubin,Direct 0.1 mg/dL (0.0-0.2); Bilirubin,Indirect 0.2 mg/dL (0.0-1.0); Bilirubin,Total 0.3 mg/dL (0.3-1.0); Blood Urea Nitrogen 19 mg/dL (6-20); Carbon Dioxide 22 mEq/L (23-29); Chloride 106 mEq/L (98-107); Globulin 3.9 g/dL (2.4-3.5); Glucose 322 mg/dL (70-105); Magnesium 1.9 mg/dL (1.6-2.6); Osmolality,Calculated 295 (280-300); Phosphorous 2.9 mg/dL (2.7-4.5); Potassium 3.5 mEq/L (3.5-5.1); Sodium 135 mEq/L (136-145); Total Protein 6.3 g/dL (6.4-8.9); eGFR For African Americans > 60 (> 60); eGFR For Non-African Americans > 60 (> 60)
[2020-10-13 10:36] LABS: Fibrinogen 178 mg/dL (169-393)
[2020-10-13 10:38] LABS: D-Dimer 6181 ng/mLFEU (0-500)
[2020-10-13] MEDS: *HR* Heparin 5,000 UNIT/ML VIAL IVP PRN (17:36)
[2020-10-13] MEDS ORDERED: Insulin DETEMIR 100 UNIT/ML X5UNITS SUBQ SCH (21:00)
[2020-10-14] MEDS: Heparin 25,000UNIT/250ML 1/2NS 25,000 UNIT/250 ML IV.SOLN IVC SCH ×2 (03:20→19:41)
[2020-10-14 05:40] LABS: Heparin anti-factor XA UFH 0.33 IU/mL (0.30-0.70)
[2020-10-14 05:45] LABS: BUN/Creatinine Ratio 36 (6-26); Blood Urea Nitrogen 21 mg/dL (6-20); Carbon Dioxide 22 mEq/L (23-29); Chloride 106 mEq/L (98-107); Glucose 396 mg/dL (70-105); Magnesium 1.9 mg/dL (1.6-2.6); Osmolality,Calculated 298 (280-300); Phosphorous 3.3 mg/dL (2.7-4.5); Potassium 3.9 mEq/L (3.5-5.1); Sodium 134 mEq/L (136-145); eGFR For African Americans > 60 (> 60); eGFR For Non-African Americans > 60 (> 60)
[2020-10-14 06:02] LABS: Ferritin 687 ng/mL (10-120)
[2020-10-14] MEDS: Insulin LISPRO 300 UNITS/3 ML VIAL SUBQ SCH ×7 (08:13→21:23)
[2020-10-14] MEDS: Insulin DETEMIR 100 UNIT/ML X5UNITS SUBQ SCH ×2 (08:14→21:22)
[2020-10-14] MEDS: Nystatin POWDER 30 GM BOTTLE TP SCH ×2 (08:14→20:43)
[2020-10-14] MEDS: Nicotine 14 MG PATCH.TD24 TD SCH (08:15)
[2020-10-14] MEDS: Ertapenem 1,000 MG in 0.9 % Sodium Chloride Mini Bag 100 ML IVPB SCH (08:15)
[2020-10-14] MEDS: Furosemide 20 MG/2 ML VIAL IVP SCH (08:17)
[2020-10-14] MEDS: *HR* Buprenorphine HCl 8 MG TAB.SUBL SL SCH (08:18)
[2020-10-14] MEDS: BuPROPion XL (24 HR) 150 MG TABLET PO SCH (08:18)
[2020-10-14] MEDS: OLANZapine 10 MG TAB.RAPDIS PO SCH (08:18)
[2020-10-15 05:30] LABS: Alanine Aminotransferase 10 Units/L (7-52); Albumin 2.3 g/dL (3.5-5.7); Albumin/Globulin Ratio 0.7 (1.1-2.2); Alkaline Phosphatase 100 Units/L (34-104); Aspartate Amino Transferase 11 Units/L (13-39); BUN/Creatinine Ratio 39 (6-26); Bilirubin,Total 0.5 mg/dL (0.3-1.0); Blood Urea Nitrogen 24 mg/dL (6-20); Calcium 8.2 mg/dL (8.6-10.3); Carbon Dioxide 23 mEq/L (23-29); Chloride 105 mEq/L (98-107); Globulin 3.5 g/dL (2.4-3.5); Glucose 333 mg/dL (70-105); Magnesium 1.9 mg/dL (1.6-2.6); Osmolality,Calculated 297 (280-300); Phosphorous 3.1 mg/dL (2.7-4.5); Potassium 3.9 mEq/L (3.5-5.1); Sodium 135 mEq/L (136-145); Total Protein 5.8 g/dL (6.4-8.9); eGFR For African Americans > 60 (> 60); eGFR For Non-African Americans > 60 (> 60)
[2020-10-15] MEDS: Nystatin POWDER 30 GM BOTTLE TP SCH ×2 (09:44→22:51)
[2020-10-15] MEDS: Insulin LISPRO 300 UNITS/3 ML VIAL SUBQ SCH ×7 (09:45→22:21)
[2020-10-15] MEDS: Insulin DETEMIR 100 UNIT/ML X5UNITS SUBQ SCH ×2 (09:45→22:20)
[2020-10-15] MEDS: Nicotine 14 MG PATCH.TD24 TD SCH (09:46)
[2020-10-15] MEDS: *HR* Buprenorphine HCl 8 MG TAB.SUBL SL SCH (09:48)
[2020-10-15] MEDS: OLANZapine 10 MG TAB.RAPDIS PO SCH (09:48)
[2020-10-15] MEDS: BuPROPion XL (24 HR) 150 MG TABLET PO SCH (09:48)
[2020-10-15] MEDS: Furosemide 20 MG/2 ML VIAL IVP SCH (09:48)
[2020-10-15] MEDS: Dexamethasone Sodium Phos/PF 10 MG/ML VIAL IVP SCH (09:48)
[2020-10-15] MEDS: Heparin 25,000UNIT/250ML 1/2NS 25,000 UNIT/250 ML IV.SOLN IVC SCH (13:37)
[2020-10-15] MEDS ORDERED: *HR* Rivaroxaban 15 MG TABLET PO SCH ×2 (14:29→21:00)
[2020-10-15] MEDS ORDERED: *HR* Heparin 5,000 UNIT/ML VIAL IVP PRN ×4 (15:50→15:52)
[2020-10-15] MEDS ORDERED: Heparin 25,000UNIT/250ML 1/2NS 25,000 UNIT/250 ML IV.SOLN IVC SCH (16:00)
[2020-10-15] MEDS: *HR* Rivaroxaban 15 MG TABLET PO SCH (22:22)
[2020-10-16 04:10] VITALS: TEMP 97.9
[2020-10-16 07:50] LABS: Basophils % 0.2 %; Eosinophils % 0.1 %; Hematocrit 32.1 % (35.3-44.9); Hemoglobin 10.5 g/dL (11.5-15.4); Immature Granulocytes % 2.2 % (0-4); Lymphocytes # 0.6 K/mcL (0.6-4.6); Mean Corpuscular HGB Conc 32.7 g/dL (31.6-35.5); Mean Corpuscular Hemoglobin 27.8 pg (28.0-33.3); Mean Corpuscular Volume 84.9 fL (83.0-100.0); Mean Platelet Volume 11.2 fL (9.4-12.4); Monocytes # 1.2 K/mcL (0.0-1.3); Monocytes % 12.2 %; Neutrophils # 8.1 K/mcL (1.6-8.9); Platelet Count 416 K/mcL (140-400); Red Blood Count 3.78 M/mcL (3.82-4.97); Red Cell Distribution Width 14.5 % (11.5-14.5); Segmented Neutrophils % 79.3 %; White Blood Count 10.2 K/mcL (4.3-11.1)
[2020-10-16 08:08] LABS: BUN/Creatinine Ratio 42 (6-26); Blood Urea Nitrogen 26 mg/dL (6-20); Calcium 8.1 mg/dL (8.6-10.3); Carbon Dioxide 24 mEq/L (23-29); Chloride 105 mEq/L (98-107); Glucose 289 mg/dL (70-105); Magnesium 1.8 mg/dL (1.6-2.6); Osmolality,Calculated 297 (280-300); Phosphorous 3.4 mg/dL (2.7-4.5); Potassium 3.6 mEq/L (3.5-5.1); Sodium 136 mEq/L (136-145); eGFR For African Americans > 60 (> 60); eGFR For Non-African Americans > 60 (> 60)
[2020-10-16] MEDS: *HR* Buprenorphine HCl 8 MG TAB.SUBL SL SCH (08:12)
[2020-10-16] MEDS: *HR* Rivaroxaban 15 MG TABLET PO SCH (08:14)
[2020-10-16] MEDS: BuPROPion XL (24 HR) 150 MG TABLET PO SCH (08:14)
[2020-10-16] MEDS: Nicotine 14 MG PATCH.TD24 TD SCH (08:14)
[2020-10-16] MEDS: OLANZapine 10 MG TAB.RAPDIS PO SCH (08:14)
[2020-10-16] MEDS: Dexamethasone Sodium Phos/PF 10 MG/ML VIAL IVP SCH (08:15)
[2020-10-16] MEDS: Furosemide 20 MG/2 ML VIAL IVP SCH (08:15)
[2020-10-16 08:19] VITALS: BP 142/71; PULSE 75; O2SAT 90
[2020-10-16] MEDS: Insulin LISPRO 300 UNITS/3 ML VIAL SUBQ SCH ×4 (08:23→12:59)
[2020-10-16] MEDS: Nystatin POWDER 30 GM BOTTLE TP SCH (08:24)
[2020-10-16] MEDS ORDERED: Insulin DETEMIR 100 UNIT/ML X5UNITS SUBQ SCH (09:00)
[2020-10-16] MEDS ORDERED: Loratadine 10 MG TABLET PO SCH (09:00)
== END 2020-10-16 15:37 | disposition home health service (06) | DRG 720 ==
LOC: CDU 17:23 → EMEROOARM 17:23 → SUATTDRO 10-04 02:21 → CDU 10-04 02:55 → 2NENU 10-05 11:37
PROVIDERS: ADMIT Student in an Organized Health Care Education/Training Program; ATTEND Pharmacist

== ENCOUNTER 2020-11-11 14:55 | Inpatient (IN) ==
[2020-11-11] MEDS ORDERED: Cefepime HCl 2,000 MG in Water for inj. (sterile) 10 ML IVP ONE (15:32)
[2020-11-11] MEDS ORDERED: Clindamycin 900 MG/50 ML 900 MG/50 ML IV.SOLN IVPB ONE (15:36)
[2020-11-11] MEDS ORDERED: Isovue-370 500 ML BOTTLE IVP ONE (15:44)
[2020-11-11] MEDS ORDERED: Vancomycin 1,250 MG/262.5 ML IV.SOLN IVPB ONE (16:00)
[2020-11-11] MEDS: 0.9 % Sodium Chloride 1,000 ML IVC SCH ×2 (16:42→21:33)
[2020-11-11 19:51] LABS: Basophils # 0.1 K/mcL (0.0-0.2); Basophils % 0.2 %; Eosinophils % 0.1 %; Hematocrit 27.9 % (35.3-44.9); Hemoglobin 8.7 g/dL (11.5-15.4); Immature Granulocytes % 2.1 % (0-4); Lymphocytes # 1.6 K/mcL (0.6-4.6); Lymphocytes % 4.9 %; Mean Corpuscular HGB Conc 31.2 g/dL (31.6-35.5); Mean Corpuscular Hemoglobin 28.5 pg (28.0-33.3); Mean Corpuscular Volume 91.5 fL (83.0-100.0); Mean Platelet Volume 9.5 fL (9.4-12.4); Monocytes # 2.9 K/mcL (0.0-1.3); Platelet Count 893 K/mcL (140-400); Red Blood Count 3.05 M/mcL (3.82-4.97); Red Cell Distribution Width 18.7 % (11.5-14.5); Segmented Neutrophils % 83.7 %
[2020-11-11 19:59] LABS: INR 2.8; Prothrombin Time 31.4 Seconds (9.4-12.1)
[2020-11-11] MEDS ORDERED: Acetaminophen 325 MG RECTAL SUPP RC ONE (19:59)
[2020-11-11 20:01] LABS: Activated Partial Thrombo Time 39.7 Seconds (26.0-36.0)
[2020-11-11 20:08] LABS: Alanine Aminotransferase 15 Units/L (7-52); Albumin 2.2 g/dL (3.5-5.7); Albumin/Globulin Ratio 0.6 (1.1-2.2); Alkaline Phosphatase 117 Units/L (34-104); Aspartate Amino Transferase 19 Units/L (13-39); BUN/Creatinine Ratio 29 (6-26); Bilirubin,Direct 0.1 mg/dL (0.0-0.2); Bilirubin,Indirect 0.4 mg/dL (0.0-1.0); Bilirubin,Total 0.5 mg/dL (0.3-1.0); Blood Urea Nitrogen 19 mg/dL (6-20); Calcium 8.3 mg/dL (8.6-10.3); Carbon Dioxide 17 mEq/L (23-29); Chloride 111 mEq/L (98-107); Glucose 114 mg/dL (70-105); Magnesium 1.4 mg/dL (1.6-2.6); Neutrophils # 26.5 K/mcL (1.6-8.9); Osmolality,Calculated 283 (280-300); Potassium 3.1 mEq/L (3.5-5.1); Sodium 135 mEq/L (136-145); Total Protein 6.2 g/dL (6.4-8.9); Troponin I 0.03 ng/mL (< 0.04); eGFR For African Americans > 60 (> 60); eGFR For Non-African Americans > 60 (> 60)
[2020-11-11 20:13] LABS: White Blood Count 31.7 K/mcL (4.3-11.1)
[2020-11-11 20:14] LABS: C-Reactive Protein 252 mg/L (Less than 10)
[2020-11-11 20:32] LABS: Bilirubin,Urine Negative (Negative); Blood,Urine Negative (Negative); Clarity,Urine Clear (Clear); Color,Urine Light-Yellow (Yellow); Glucose,Urine (UA) Normal (Normal); Hyaline Casts,Urine Few per lpf (None Seen); Ketones,Urine Negative (Negative); Leukocyte Esterase,Urine Negative (Negative); Nitrite,Urine Negative (Negative); PH,Urine 6.5 pH Units (5.0-8.0); Protein,Urine 70 mg/dL (Neg-Trace); RBC,Urine 0-3 per hpf (0-3); Urobilinogen,Urine Normal (Normal); WBC,Urine 0-3 per hpf (0-3)
[2020-11-11] MEDS ORDERED: Naloxone 0.4 MG/ML INJ IVP PRN (22:05)
[2020-11-11] MEDS ORDERED: D5% in Water 1,000 ML IVC PRN (22:53)
[2020-11-11] MEDS ORDERED: Dextrose Gel 15 GM/37.5 ML TUBE PO PRN ×2 (22:53)
[2020-11-11] MEDS ORDERED: *HR* Dextrose 50 % in Water (Syg) 50 ML SYRINGE IVP PRN (22:53)
[2020-11-11] MEDS ORDERED: *HR* Heparin 5,000 UNIT/ML VIAL IVP ONE (22:59)
[2020-11-11] MEDS ORDERED: *HR* Heparin 5,000 UNIT/ML VIAL IVP PRN ×2 (22:59)
[2020-11-11] MEDS ORDERED: Ringers Solution, Lactated 500 ML IVC ONE (23:00)
[2020-11-11] MEDS ORDERED: Heparin 25,000UNIT/250ML 1/2NS 25,000 UNIT/250 ML IV.SOLN IVC SCH ×2 (23:00→23:30)
[2020-11-12] MEDS: Ertapenem 1,000 MG in 0.9 % Sodium Chloride Mini Bag 100 ML IVPB SCH ×2 (00:36→23:32)
[2020-11-12] MEDS ORDERED: Ringers Solution, Lactated 1,000 ML IVC SCH (02:00)
[2020-11-12] MEDS: Insulin LISPRO 300 UNITS/3 ML VIAL SUBQ SCH ×5 (02:04→23:36)
[2020-11-12 02:11] LABS: Basophils % 0.2 %; Eosinophils % 0.2 %; Hemoglobin 8.2 g/dL (11.5-15.4); Platelet Count 791 K/mcL (140-400)
[2020-11-12 02:13] LABS: Basophils # 0.1 K/mcL (0.0-0.2); Eosinophils # 0.1 K/mcL (0.0-0.6); Immature Granulocytes % 1.8 % (0-4); Lymphocytes # 1.6 K/mcL (0.6-4.6); Lymphocytes % 5.1 %; Mean Corpuscular HGB Conc 31.5 g/dL (31.6-35.5); Mean Corpuscular Hemoglobin 29.3 pg (28.0-33.3); Mean Corpuscular Volume 92.9 fL (83.0-100.0); Mean Platelet Volume 9.4 fL (9.4-12.4); Monocytes # 2.7 K/mcL (0.0-1.3); Monocytes % 8.8 %; Neutrophils # 25.8 K/mcL (1.6-8.9); Red Cell Distribution Width 18.8 % (11.5-14.5); Segmented Neutrophils % 83.9 %
[2020-11-12 02:19] LABS: White Blood Count 30.7 K/mcL (4.3-11.1)
[2020-11-12 02:21] LABS: Prothrombin Time 21.8 Seconds (9.4-12.1)
[2020-11-12 02:29] LABS: Activated Partial Thrombo Time 82.8 Seconds (26.0-36.0)
[2020-11-12 02:33] LABS: BUN/Creatinine Ratio 27 (6-26); Blood Urea Nitrogen 15 mg/dL (6-20); Calcium 8.1 mg/dL (8.6-10.3); Carbon Dioxide 13 mEq/L (23-29); Chloride 115 mEq/L (98-107); Glucose 91 mg/dL (70-105); Magnesium 1.9 mg/dL (1.6-2.6); Osmolality,Calculated 282 (280-300); Potassium 3.2 mEq/L (3.5-5.1); Sodium 136 mEq/L (136-145); eGFR For African Americans > 60 (> 60); eGFR For Non-African Americans > 60 (> 60)
[2020-11-12 02:59] LABS: Folate 4.1 ng/mL (3.0-16.0)
[2020-11-12] MEDS: Vancomycin 1,250 MG/262.5 ML IV.SOLN IVPB SCH ×2 (06:52→19:25)
[2020-11-12] MEDS ORDERED: *HR* Rivaroxaban 10 MG TABLET PO SCH (17:00)
[2020-11-12] MEDS ORDERED: *HR* Rivaroxaban 15 MG TABLET PO SCH (18:00)
[2020-11-13 04:08] VITALS: TEMP 98.4
[2020-11-13] MEDS: Vancomycin 1,250 MG/262.5 ML IV.SOLN IVPB SCH (05:59)
[2020-11-13] MEDS: Insulin LISPRO 300 UNITS/3 ML VIAL SUBQ SCH (06:00)
[2020-11-13 06:52] VITALS: BP 135/58; PULSE 105; O2SAT 95
== END 2020-11-13 07:28 | disposition short-term general hospital (02) | DRG 720 ==
LOC: EMEROOARM 14:55 → 2NENU 22:50
PROVIDERS: ADMIT Internal Medicine; ATTEND Internal Medicine